=== PATIENT | male | born 1995 | race Caucasian/White ===

== ENCOUNTER 2017-12-19 16:18 | Emergency (ER) | payer OTHER ==
[2017-12-19 16:38] VITALS: RESP 18; O2SAT 100
[2017-12-19] MEDS ORDERED: Sodium Chloride 0.9% 1,000 ML IV ONE (16:57)
[2017-12-19 17:21] LABS: BASO # 0.1 K/uL (0.0-0.2); BASO % 0.3 % (0.0-2.0); HEMOGLOBIN 15.8 g/dL (12.0-18.0); LYMPH # 1.1 K/uL (1.0-4.3); LYMPH % 6.3 % (20.0-40.0); MEAN CELL VOLUME 92.4 fL (80.0-94.0); MEAN CORPUSCULAR HEMOGLOBIN 31.5 pg (27.0-31.0); MEAN CORPUSCULAR HGB CONC 34.1 g/dL (33.0-37.0); MEAN PLATELET VOLUME 9.3 fL (7.2-11.7); MONO # 0.4 K/uL (0.0-0.8); MONO % 2.1 % (0.0-10.0); NEUT # 15.5 K/uL (1.8-7.0); NEUT % 91.3 % (50.0-75.0); PLATELET COUNT 259 K/uL (130-400); RBC 5.02 Mil/uL (4.40-5.90); RED CELL DISTRIBUTION WIDTH 13.1 % (11.5-14.5)
[2017-12-19] MEDS ORDERED: Sodium Chloride 0.9% 1,000 ML ONE (17:21)
--- NOTE | 2017-12-19 17:28 | C.PDOC ---
History Of Present Illness 22 y/o male presents to ED with complaints of diarrhea and 4 episodes of vomiting that began this morning. Associated symptoms include sweating, subjective fever, and decreased PO intake. Pt denies recent travel, rashes, allergies or any other physical complaints. Time Seen by Provider: 12/19/17 16:45 Chief Complaint (Nursing): Abdominal Pain History Per: Patient History/Exam Limitations: no limitations Onset/Duration Of Symptoms: Hrs Current Symptoms Are (Timing): Still Present Quality Of Discomfort: Unable To Describe Associated Symptoms: Fever, Vomiting (4 episodes), Diarrhea. denies: Chest Pain , Urinary Symptoms Exacerbating Factors: None Alleviating Factors: None Recent travel outside of the [place]: No Past Medical History Reviewed: Historical Data, Nursing Documentation, Vital Signs Vital Signs: Last Vital Signs Temp 97.9 F 12/19/17 16:35 Pulse 70 12/19/17 16:35 Resp 18 12/19/17 16:35 BP 132/77 12/19/17 16:35 Pulse Ox 100 12/19/17 17:39 - Medical History PMH: No Chronic Diseases Surgical History: No Surg Hx Family History: States: No Known Family Hx - Social History Hx Alcohol Use: No Hx Substance Use: No Review Of Systems Constitutional: Positive for: Fever, Sweats Cardiovascular: Negative for: Chest Pain Respiratory: Negative for: Shortness of Breath Gastrointestinal: Positive for: Vomiting, Diarrhea. Negative for: Abdominal Pain Genitourinary: Negative for: Dysuria, Hematuria Skin: Negative for: Rash Neurological: Negative for: Weakness, Numbness Physical Exam - Physical Exam Appears: Well, Non-toxic, No Acute Distress Skin: Diaphoretic Head: Atraumatic, Normacephalic Eye(s): bilateral: Normal Inspection Oral Mucosa: Moist Neck: Supple Chest: Symmetrical, No Tenderness Cardiovascular: Rhythm Regular Respiratory: Normal Breath Sounds, No Rales, No Rhonchi, No Wheezing Gastrointestinal/Abdominal: Soft, No Tenderness, No Distention, No Guarding, No Rebound Back: No CVA Tenderness Neurological/Psych: Oriented x3, Normal Speech, Normal Cognition, Other (no focal deficits) ED Course And Treatment - Laboratory Results Result Diagrams: 12/19/17 17:18 12/19/17 17:18 O2 Sat by Pulse Oximetry: 100 (RA) Pulse Ox Interpretation: Normal - Other Rad Chest X-Ray X-Ray: Viewed By Me, Read By Radiologist Interpretation: Chest x-ray single frontal view. History: Abdominal pain. Comparison: None available. Findings: No focal infiltrate or effusion. Heart size within normal limits. Impression: No focal infiltrate or effusion. Progress Note: On first re-exam, the patient feels chills. Toradol and tylenol ordered. On re-exam, the patient reports improvement of symptoms. Lungs are CTA , heart is RRR, abdomen is soft, non-tender and tolerating PO well. Ambulatory in the ED with steady gait. Follow up with the medical doctor within 1-2 days. Return if worsened. Medical Decision Making Medical Decision Making: Ordered CXR and blood work. Administered Pepcid, Zofran, and IV fluids. Disposition - Disposition Referrals: [facility] [Outside] Disposition: HOME/ ROUTINE Disposition Time: 18:51 Condition: STABLE Additional Instructions: Follow up with the medical doctor within 1-2 days. Return if worsened. Prescriptions: Acetaminophen [Tylenol] 325 mg PO Q6 PRN #30 tab PRN Reason: Fever >100.4 F Ibuprofen [Motrin] 600 mg PO TID #21 tab Oseltamivir [Tamiflu] 75 mg PO BID #10 cap Instructions: Viral Syndrome (ED) Forms: [facility] ([place]), Work Excuse - Clinical Impression Clinical Impression: Vomiting, Diarrhea, Viral syndrome - PA / HEALTH LEAD / Resident Statement MD/DO has reviewed & agrees with the documentation as recorded. - Scribe Statement The provider has reviewed the documentation as recorded by the Tiffanyibkeyana Kaur All medical record entries made by the Scribe were at my direction and personally dictated by me. I have reviewed the chart and agree that the record accurately reflects my personal performance of the history, physical exam, medical decision making, and the department course for this patient. I have also personally directed, reviewed, and agree with the discharge instructions and disposition.
[2017-12-19 17:35] LABS: CALCIUM 9.5 mg/dl (8.6-10.4); GFR AFRICAN-AMERICAN > 60; GFR NON-AFRICAN AMERICAN > 60; LIPASE 48 U/L (23-300)
[2017-12-19 17:36] LABS: ALB/GLOB RATIO 1.3 (1.0-2.1); ALBUMIN 4.8 g/dL (3.5-5.0); ALT/SGPT 23 U/L (21-72); AST/SGOT 38 U/L (17-59); BLOOD UREA NITROGEN 14 mg/dL (9-20)
--- NOTE | 2017-12-19 17:36 | RAD ---
Chest x-ray single frontal view History: Abdominal pain. Comparison: None available Findings: No focal infiltrate or effusion. Heart size within normal limits. Impression: No focal infiltrate or effusion.
[2017-12-19 18:08] LABS: BANDS 1 % (0-2); LYMPHOCYTE 9 % (20-40); MONOCYTE 5 % (0-10); NEUTROPHIL 85 % (50-75); PLATELET ESTIMATE NORMAL (NORMAL); TOTAL CELLS COUNTED 100
[2017-12-19 19:35] VITALS: BP 135/81; PULSE 82; TEMP 98.5
== END 2017-12-19 20:05 | disposition home or self-care (01) ==
LOC: C.ER 16:18
DX: B34.9 Viral infection, unspecified (principal); R19.7 Diarrhea, unspecified; R11.10 Vomiting, unspecified
CPT/HCPCS: 71045; 80053; 83690; 85025; 96361; 96374; 96375; 96376; 99285; J1885; J2405; J7040